=== PATIENT | female | born 2000 | race Caucasian/White ===

== ENCOUNTER 2021-03-01 13:03 | Emergency (ER) | payer SELFPAY ==
[~2021-03-01] VITALS: Ht 175.3 cm; Wt 67.5 kg
--- NOTE | 2021-03-01 13:33 | NUR ---
PT BROUGHT BACK TO ROOM FROM TRIAGE. PT STATED THAT SHE AD INTERCOURSE THIS AFTERNOON AND RIGHT AFTER FELT A SHARP PAIN 8/10 IN HER RLQ. PT STATED THAT SHE HAS FELT THIS PAIN BEFORE DURING OR AFTER INTERCOURSE, ON BOTH SIDES OF HER ABDOMEN. PT DENIES ANY VAGINAL BLEEDING OR BLOOD IN URINE/PAINFUL URINATION. PT LMP 02/06.
[2021-03-01 13:58] LABS: MICROSCOPIC NOT IND
[2021-03-01 14:01] LABS: BASOPHILS % (AUTO) 0 % (0-1); EOSINOPHILS % (AUTO) 2 % (1-7); LYMPHOCYTES % (AUTO) 32 % (22-44); MEAN CORPUSCULAR HEMOGLOBIN 30.4 pg (27.0-34.8); MEAN CORPUSCULAR HGB CONC 34.7 g/dL (32.4-35.8); MEAN PLATELET VOLUME 7.7 fL (7.4-10.4); MONOCYTES % (AUTO) 8 % (2-9); NEUTROPHILS % (AUTO) 58 % (42-75); PLATELET COUNT 306 x10^3/uL (130-400); RED BLOOD COUNT 4.77 x10^6/uL (3.82-5.3); RED CELL DISTRIBUTION WIDTH 12.2 % (9.6-15.2)
[2021-03-01 14:02] LABS: MD NO
--- NOTE | 2021-03-01 14:34 | NUR ---
AWAITING US. PT RESTING COMFORTABLY IN BED. CALL LIGHT WITHIN REACH.
--- NOTE | 2021-03-01 14:53 | NUR ---
PT TO US
--- NOTE | 2021-03-01 15:03 | NUR ---
PT BACK FROM US
[2021-03-01 15:28] VITALS: BP 105/64
--- NOTE | 2021-03-01 15:43 | NUR ---
BREAK RN Patient/Caregiver given discharge instructions and they have confirmed that they understand the instructions. Patient ambulatory with steady gait.
== END 2021-03-01 15:44 | disposition home or self-care (01) ==
LOC: ED 14:14
DX: N83.291 Other ovarian cyst, right side (principal); R10.2 Pelvic and perineal pain
CPT/HCPCS: 36415; 76830; 81003; 84703; 85025; 99284